=== PATIENT | female | born 1940 | race Caucasian/White ===

== ENCOUNTER 2016-05-27 12:45 | Observation (INO) | payer MEDICARE ==
[2016-05-27] VITALS (7 sets, daily range): BP systolic 146–221; BP diastolic 81–103; PULSE 72–93; RESP 16–20; O2SAT 95–100
[~2016-05-27] VITALS: Ht 170.2 cm; Wt 77.7 kg
[~2016-05-27 12:45] MED LIST: ACET325T51 PO; AMLO10TA3 PO; CARV12.52 PO; FURO40TA4 PO; HYDR-3939 PO; ISOS5TAB17 PO; POLY17PO6 PO
[2016-05-27 13:37] LABS: APPEARANCE,URINE HAZY (CLEAR,HAZY); COLOR,URINE STRAW (YELLOW)
[2016-05-27 13:38] LABS: OCCULT BLOOD,URINE NEGATIVE (NEGATIVE); UROBILINOGEN,URINE NORMAL (NORMAL)
--- NOTE | 2016-05-27 13:38 | ED.REPORT ---
HPI-General Illness Date of Service May 27, 2016 ED Provider: Miguel Llanes DO The patient is a 76 year old female w/ a hx of HTN who presents to the ED due to left flank pain for the past 4 days. She c/o associated SOB. A friend gave her 15 mg of morphine. She does not regularly take narcotics. She was diagnosed with renal stones and UTI at [facility] two days ago. The pain subsides when she puts a heating pad on her abdomen. The morphine significantly reduced her symptoms. She states her pain is not being controlled with the Vicodin they gave her. She is not currently experiencing any pain at the ED due to the pain medication. She denies diarrhea, vomiting, constipation, dysuria, incontinence, numbness, and weakness. Nursing Notes Stated Complaint: SHORTNESS OF BREATH POSSIBLE KIDNEY INFECTION Chief Complaint: General Complaint Nursing Notes Reviewed: Yes Allergies: Coded Allergies: codeine (Verified Allergy, Unknown, 05/27/16) Scheduled Amlodipine (Amlodipine) 10 Mg Tablet 10 MG PO DAILY Carvedilol (Carvedilol) 12.5 Mg Tablet 12.5 MG PO BID Furosemide (Furosemide) 40 Mg Tablet 40 MG PO DAILY Hydralazine (Hydralazine) 25 Mg Tablet 25 MG PO TID Isosorbide Dinitrate (Isordil Titradose) 5 Mg Tablet 10 MG PO TID Polyethylene Glycol 3350 (Miralax) 17 Gm Powd.pack 17 GM PO DAILY Scheduled PRN Acetaminophen (Acetaminophen) 325 Mg Tablet 325 MG PO Q4H PRN PRN For Fever General Time Seen by MD: 13:37 Chief Complaint Back pain Hx Obtained From: Patient Arrived By: Walk-in Sudden in Onset?: Yes Onset Occurred: 4 days ago Symptom Duration: Since onset Location: : Back Quality: Painful Radiation: : Abdomen Severity: Current: No pain currently Severity: Maximum: Moderate Recent Healthcare: Recent doctor visit Similar Sx Previous: Yes Past Medical History Past Medical History heart failure hiatal hernia small bowel obstruction Reports: Asthma, Hypertension Past Surgical History right foot surgery Reports: Hysterectomy Smoking History Former Smoker Social History Other Social History: Good social support, , Local resident Ambulatory Status Independent Review of Systems Full Review of Systems GI: Denies: Constipation, Diarrhea, Vomiting Female: Denies: Dysuria, Incontinence Musculoskeletal: Reports: Back pain Neurologic: Denies: Numbness, Weakness Complete sys rev & neg: except as marked. Physical Exam Vital Signs Vital Signs Date Time Temp Pulse Resp B/P Pulse Ox O2 Delivery O2 Flow Rate FiO2 05/27/16 12:58 37.4 77 16 189/96 100 Room Air Initial VS: Reviewed Head / Eyes: Atraumatic, Normocephalic, PERRL ENT: Mucous membranes moist, Conjunctiva normal Abdomen / GI: Soft, Non-tender Extremities: Vascular intact, No swelling Skin: Warm, Dry General/Constitutional: Awake, Alert Distress / Hydration: Positive: Distress mild Behavior: Positive: Agitated Back: No midline vertebral tend, No CVA tenderness no warmth Interpretation & Diagnostics Lab Results Interpretation Result Diagram: 05/27/16 1340 05/27/16 1340 Test 05/27/16 13:00 05/27/16 13:40 05/27/16 14:15 05/27/16 14:19 Urine Color Straw (YELLOW) Urine Appearance Hazy (CLEAR,HAZY) Urine pH 7.0 (5.0-8.0) Urine Specific [place] 1.005 (1.003-1.035) Urine Protein Negativemg/dL (NEG,TRACE) Urine Glucose (UA) Negativemg/dL (NEGATIVE) Urine Ketones Negativemg/dL (NEGATIVE) Urine Occult Blood Negative (NEGATIVE) Urine Nitrite Negative (NEGATIVE) Urine Bilirubin Negative (NEGATIVE) Urine Urobilinogen Normalmg/dL (NORMAL) Urine Leukocyte Esterase Small (NEGATIVE) Urine RBC 0-2/hpf (0-2) Urine WBC 0-5/hpf (0-5) Urine Epithelial Cells Occasional/hpf (NONE-MOD) Urine Crystals Oxalic acid crystals (NONE Urine Bacteria None/hpf (NONE-FEW) Urine Hyaline Casts None/lpf (NONE) Urine Granular Casts None seen (NONE SEEN) Urine Waxy Casts None seen (NONE SEEN) Urine Red Blood Cell Casts None seen (NONE SEEN) Urine White Blood Cell Casts None seen (NONE SEEN) Urine Mucus None seen (None Seen) Urine Trichomonas None seen (NONE SEEN) Urine Yeast None (NONE SEEN) Urinalysis Comment None Urine Culture Reflexed Indicated White Blood Count 7.2th/mm3 (3.8-10.1) Red Blood Count 4.69mil/mm3 (3.90-5.20) Hemoglobin 14.5g/dL (12.0-15.6) Hematocrit 42.2% (35.0-46.0) Mean Corpuscular Volume 90.0fL (81-100) Mean Corpuscular Hemoglobin 30.9pg (27.0-35.0) Mean Corpuscular Hemoglobin Concent 34.4% (32.0-37.0) Red Cell Distribution Width 12.4% (12.3-15.4) Platelet Count 264bil/L (150-400) Neutrophils (%) (Auto) 67.0% (40-74) Lymphocytes (%) (Auto) 20.3% (14-46) Monocytes (%) (Auto) 8.2% (4-12) Eosinophils (%) (Auto) 3.9% (0-5) Basophils (%) (Auto) 0.3% (0-3) Sodium Level 136mEq/L (134-144) Potassium Level 3.1mEq/L (3.5-5.2) Chloride Level 97mEq/L (97-108) Carbon Dioxide Level 18mmol/L (18-29) Blood Urea Nitrogen 21mg/dL (8-27) Creatinine 1.11mg/dL (0.57-1.00) Estimat Glomerular Filtration Rate 69mL/min (>59) Glucose Level 115mg/dL (60-99) Calcium Level 10.2mg/dL (8.5-10.1) Magnesium Level 1.7mg/dL (1.6-2.6) Total Bilirubin 0.6mg/dL (0.0-1.2) Aspartate Amino Transf (AST/SGOT) 19U/L (0-50) Alanine Aminotransferase (ALT/SGPT) 11U/L (0-32) Alkaline Phosphatase 89U/L (25-165) Total Protein 7.9g/dL (6.4-8.4) Albumin 4.3g/dL (3.4-5.0) Lipase 24U/L (13-60) Lactic Acid Level 3.2mmol/L (0.4-2.0) Hold Kapoor Top Tube Received (Received) Re-Eval/Medical Decision Med Decision/Clinical Course Unclear etiology of severe left-sided flank pain, patient has an elevated lactic, we will plan on a CT and further evaluation. Time of Eval: 15:02 Re-Evaluation/Progress Note: Pt care will be transferred to Dr. Boateng. Counseled Regarding: Diagnosis, Lab results, Need for follow-up, When/why to return to ED Discharge & Departure Shift Change Sign-Out Patient Care Transferred: Yes Discussed Complaint(s): Yes Primary Impression: Flank pain Disposition: Home Discharge Condition All VS Reviewed: Yes Condition: Stable Additional Instructions: Your imaging and labwork are reassuring. Your lactic acid is slightly elevated. There are no dangerous findings for your symptoms. Follow up with your primary care physician as needed. Return to the Emergency Department for any new or worsening symptoms. Referrals: Angela Holm DO (PCP) Care Transferred to: Dr. Boateng Care Transferred at: 15:01 Scribe Attestation Portion of this note were transcribed by Teresita Moss. I, Dr. Llanes, personally performed the history, physical exam, and medical decision-making: I reviewed and confirmed the accuracy for the information in the transcribed note. Signed by: irma Reyes, 05/27/16 1500 copies to: Angela Holm Timothy S DO May 27, 2016 13:38 Teresita Moss May 27, 2016 14:15
[2016-05-27 13:47] LABS: BASOPHILS % (AUTO) 0.3 % (0-3); EOSINOPHILS % (AUTO) 3.9 % (0-5); MONOCYTES % (AUTO) 8.2 % (4-12); Mean Corpuscular Hemoglobin 30.9 pg (27.0-35.0); Platelet Count 264 bil/L (150-400)
[2016-05-27 14:10] LABS: Magnesium 1.7 mg/dL (1.6-2.6)
--- NOTE | 2016-05-27 15:26 | DRSVH ---
PROCEDURE: CT ABDOMEN AND PELVIS WITH CONTRAST ([id number]) INDICATIONS: left flank pain TECHNIQUE: After the administration of intravenous contrast, 5 mm thick sections acquired from the diaphragm to the symphysis. 5 mm coronal and sagittal reformats were acquired. For radiation dose reduction, the following was used: automated exposure control, adjustment of mA and/or kV according to patient francie álvarez. COMPARISON: [facility], CT, KIDNEY/ URETER/BLADDER, 05/25/2016, 9:07. FINDINGS: Image quality: Excellent. ABDOMEN: Lung bases: Lung bases are clear. Heart size is normal. Solid organs: Liver is mildly enlarged with steatosis. The spleen is normal in size and enhancement. Hepatic cysts are unchanged. Gallbladder is unremarkable. Biliary system is non dilated. Pancreas enhances normally. No adrenal nodules. Kidneys demonstrate normal size and enhancement, without hyd ronephrosis. The previously identified bilateral nonobstructing renal calculi are again noted. The l argest on each side measures approximately 6-7 mm. Peritoneum and bowel: Bowel loops demonstrate normal wall thickness and caliber. No free fluid or a ir. Colonic diverticula are present without associated inflammatory change. Nodes and vessels: No retroperitoneal or mesenteric adenopathy by size criteria. Aorta and inferior vena cava are normal in size. Miscellaneous: No ventral hernias. PELVIS: Genitourinary: Bladder wall thickness is normal. Miscellaneous: No inguinal hernias or adenopathy. Bones: No suspicious bony lesions. No vertebral body compression fractures. IMPRESSION: 1. Protrusion appears to show low lower rib calculi. 2. Diverticulosis. Dictated by: Cherelle Barrera M.D. on 05/27/2016 at 15:19 Approved by: Cherelle Barrera M.D. on 05/27/2016 at 15:25
[2016-05-27] MEDS ORDERED: 0.9% Sodium Chloride 1,000 ML IV ONE ×2 (15:35→19:05)
[2016-05-27] MEDS ORDERED: Ondansetron 2 mg/mL 2 mL Inj ONE (21:38)
[2016-05-27] MEDS ORDERED: 0.9% Sodium Chloride 1,000 ML IV SCH (22:11)
[2016-05-27] MEDS ORDERED: Polyethylene Glycol (PEG) 17 Gm Powder PO PRN (22:15)
[2016-05-27] MEDS ORDERED: Alum-Mag Hydrox-Simeth 30 mL Suspension PO PRN (22:15)
[2016-05-27] MEDS ORDERED: TRIA15OI9 TOP (22:22)
[2016-05-27] MEDS: Heparin 5,000 Unit/mL Inj SUBQ SCH (23:50)
--- NOTE | 2016-05-28 00:27 | PCM.HPMED ---
Subjective Date of Service May 28, 2016 Primary Provider: Admitting Physician: Zeferino Jean Baptiste MD Primary Care Physician: Angela Holm DO Attending Physician: Zeferino Jean Baptiste MD Admit Status: From the Emergency Department Chief Complaint: Flank pain, patient has history of kidney stones History of Present Illness: This is a pleasant 76 Y/O F with hx of HTN, history of chronic kidney disease, history of nonobstructing nephrolithiasis, history of left-sided partial nephrectomy secondary to an obstructing stone at age 34, history of heart failure, and small bowel obstruction status post surgery 2 years ago for adhesions, who presented to the ED secondary to 4-6 days of left flank pain rated 9-10 out of 10 and described as a deep ache. Pain improves to 0/10 on morphine. She states she has had similar episodes 2 years ago when she had her bowel blockage. Associated symptoms include increased frequency of voiding, decreased urinary output,. Patient denies fever, chills, vomiting, abdominal pain, sick contacts, travel, dysuria, hematuria, constipation, hematochezia, diarrhea. Patient reports she has been receiving oral 15 mg morphine from her friend for the past 4-6 days. Of note patient is narcotic felicity. She was diagnosed with renal stones and UTI at [facility] two days ago. Things that make her pain improves are heat on her abdomen. Patient received IV morphine which caused her to become severely nauseous, and tachypneic during this interview. After receiving IV Zofran she began to feel more comfortable. She reports that she does much better on the oral morphine as it does not cause her to become nauseous. She has a history of allergy to pretty much every other narcotic which results in severe nausea. Of note patient had an elevated lactic acid of 3.2 which resolved after IV fluids. Patient's urinalysis was normal except for small leukocyte esterase. Patient was found to be hypokalemic at 3.1 Surgery was consulted on request of the ED, Dr. Crawford regarding this patient. Patient states prior to the onset of this pain she was normal. She reports that since her hiatal hernia surgery 20 years ago, she has been unable to vomit. Patient had CT abdomen and pelvis done in the ED which showed diverticulosis with no inflammation or signs of perforation. No hydronephrosis, no obstructing urinary tract stones. Patient received 2 L normal saline bolus in the ED. Patient received morphine 2 g IV in the ED. Patient was admitted to the hospital for observation and further workup. Vital signs: Temperature 37.4 pulse 77, blood pressure 189/96, map 127, RR 16, 1 % room air Repeat vitals: Pulse 93, blood pressure 146/81, 95% room air Hemogram: Within normal limits Chemistry panel: Sodium 136, potassium 3.1, chloride 97, carbon dioxide 18, BUN 21, creatinine 1.11, No baseline creatinine available for comparison, glucose 115 Lactic acid 3.2--> 1.5 Calcium 10.2 UA: Straw hazy colored urine, pH 7, specific gravity 1.005, small leukocyte esterase, Oxalic acid crystals, otherwise negative UA Urine culture pending Review of Systems: A comprehensive review of systems was conducted and was negative except as mentioned in history of present illness. Allergies Coded Allergies: codeine (Verified Allergy, Unknown, 05/27/16) hydrocodone (Verified Adverse Reaction, Intermediate, Nausea,Vomiting - TOLERATES MORPHINE, 05/27/16) TOLERATES MORPHINE hydromorphone (Verified Adverse Reaction, Intermediate, Nausea,Vomiting - TOLERATES MORPHINE, 05/27/16) TOLERATES MORPHINE oxycodone (Verified Adverse Reaction, Intermediate, Nausea,Vomiting- TOLERATES MORPHINE, 05/27/16) Home Medications Amlodipine (Amlodipine) 10 Mg Tablet 10 MG PO DAILY Carvedilol (Carvedilol) 12.5 Mg Tablet 12.5 MG PO BID Furosemide (Furosemide) 40 Mg Tablet 40 MG PO DAILY Hydralazine (Hydralazine) 25 Mg Tablet 25 MG PO TID Isosorbide Dinitrate (Isordil Titradose) 5 Mg Tablet 10 MG PO TID (Patient states she takes all of her blood pressure medications before bedtime regardless of dosing frequency) Polyethylene Glycol 3350 (Miralax) 17 Gm Powd.pack 17 GM PO DAILY PRN Acetaminophen (Acetaminophen) 325 Mg Tablet 325 MG PO Q4H PRN PRN For Fever PMH heart failure hiatal hernia small bowel obstruction Reports: Asthma, Hypertension Surgical History right foot surgery Reports: Hysterectomy Social History Hx Alcohol Use: No Smoking Status: Former Smoker Exam Vital Signs Vital Sign - Last Date Time Temp Pulse Resp B/P Pulse Ox O2 Delivery O2 Flow Rate FiO2 05/27/16 23:04 93 146/81 95 Room Air 05/27/16 17:23 20 05/27/16 12:58 37.4 Intake and Output 05/27/16 05/27/16 05/28/16 Cumulative From/Thru 15:00 23:00 07:00 05/27/16 15:39 - 05/27/16 23:59 Intake Total 2000 ml 2000 ml Balance 2000 ml 2000 ml Intake IV Total 2000 ml 2000 ml Exam General: Patient is alert and oriented 3 but in acute distress wheezing somewhat rapidly hunched over at the side of the bed stating that she is nauseous. HEENT: NC/AT, eyes, PERRLA, EOMI, neck, soft supple, no adenopathy, no JVD, no masses, no thyromegaly, throat mucous membranes pink and moist, no erythema, no exudates. Lungs: CTAB all weston, no wheezes, no rhonchi, no crackles, no adventitious lung sounds, no use of accessory muscles of respiration, good air movement, good respiratory effort. Heart: Regular rate and rhythm, no murmur, S1-S2 present, no rub, no click, no distant heart sounds, Abdomen: Soft, mildly tender in the suprapubic area, midline surgical scars spanning from the umbilicus inferiorly approximately 20 cm, abdomen is nondistended, bowel sounds hyperactive, no rebound, no guarding, Genitourinary: No CVA tenderness, mild suprapubic tenderness, no Calderon catheter, Extremities: Pulses equal and symmetric upper/lower extremity including radial and dorsalis pedis, no edema Neurologic: Grossly neurologically intact, speaks in full sentences, no focal neurological signs. Skin: Warm dry, no rashes present Osteopathic exam: Patient has chronic tissue texture changes T8 through T12 bilaterally, tender point at T10 on the right transverse process. Lab and Diagnostics Result Diagram: 05/27/16 1340 05/27/16 1340 X-Rays, CTs and MRIs Date of Service: 05/27/16 1437 PROCEDURE: CT ABDOMEN AND PELVIS WITH CONTRAST INDICATIONS: left flank pain TECHNIQUE: After the administration of intravenous contrast, 5 mm thick sections acquired from the diaphragm to the symphysis. 5 mm coronal and sagittal reformats were acquired. For radiation dose reduction, the following was used: automated exposure control, adjustment of mA and/or kV according to patient size. COMPARISON: [facility], CT, KIDNEY/ URETER/BLADDER, 05/25/2016, 9:07. FINDINGS: Image quality: Excellent. ABDOMEN: Lung bases: Lung bases are clear. Heart size is normal. Solid organs: Liver is mildly enlarged with steatosis. The spleen is normal in size and enhancement. Hepatic cysts are unchanged. Gallbladder is unremarkable. Biliary system is non dilated. Pancreas enhances normally. No adrenal nodules. Kidneys demonstrate normal size and enhancement, without hydronephrosis. The previously identified bilateral nonobstructing renal calculi are again noted. The largest on each side measures approximately 6-7 mm. Peritoneum and bowel: Bowel loops demonstrate normal wall thickness and caliber. No free fluid or air. Colonic diverticula are present without associated inflammatory change. Nodes and vessels: No retroperitoneal or mesenteric adenopathy by size criteria. Aorta and inferior vena cava are normal in size. Miscellaneous: No ventral hernias. PELVIS: Genitourinary: Bladder wall thickness is normal. Miscellaneous: No inguinal hernias or adenopathy. Bones: No suspicious bony lesions. No vertebral body compression fractures. IMPRESSION: 1. Protrusion appears to show low lower rib calculi. 2. Diverticulosis. Dictated by: Cherelle Barrera M.D. on 05/27/2016 at 15:19 Approved by: Cherelle Barrera M.D. on 05/27/2016 at 15:25 Assessment & Plan This is a pleasant 76-year-old female with history of hypertension,recent diagnosis at [facility] of bilateral nonobstructing kidney stones, and recent diagnosis of UTI 2 days ago, after acute onset of left sided back pain rated 10 out of 10. He was found to have elevated lactate which resolved on IV fluids, as well as hypokalemia. Surgery was consulted and patient was admitted for observation and further workup. Of note patient is acutely sensitive to opiate medications which make her nauseous. # Flank pain, present on admission, active - Onset about 1 week ago. He has been taking a friend's 15 mg morphine for pain control. Patient was previously narcotic 90 - Flank pain out of perforation to physical exam. - Admitted for observation and pain control, as well as further workup. - CT abdomen and pelvis showing bilateral calculi however without signs of urinary obstruction or hydronephrosis - Patient reports increased urinary frequency and decreased volume with each void. - urology consult in the morning could be considered if patient fails to improve and has worsening symptoms overnight. - Patient did not tolerate IV morphine, switch patient to by mouth morphine 2-4 mg oral solution every 4 hours - IV fluids normal saline # Bilateral renal calculi nonobstructing as seen on CT, present on admission, - No signs of hydronephrosis # Diverticulosis as seen on CT, present remission - No signs of inflammation on CT - Surgery Dr. Quintero has been consulted, thank you for your recommendation # Patient has history of small bowel obstruction secondary to adhesions 2 years ago status post surgical lysis. - Patient states her current pain is very similar and located in the same region as her pain was during the small bowel obstruction. - Surgery is on board as stated previously # Hypokalemia, present on admission, active - Potassium 3.1 - We will replace potassium - We will follow-up with a.m. labs # Heart failure, presumed stable # Asthma, presumed stable # Hypertension - Continue medication amlodipine 10 mg daily - Continue carvedilol 12.5 mg twice a day - Continue furosemide 40 mg daily - Continue hydralazine 25 mg 3 times a day - Continue medication isosorbide dinitrate 10 mg by mouth 3 times a day - She states that she takes all of her blood pressure medications at night regardless of the dosing frequency. Patient states that she takes her blood pressure medications when her blood pressure runs high. Patient started to "a research paper regarding how taking it in this fashion was better during the interview. Disposition: Admitted to in patient for observation, secondary to severity of presenting symptoms, treatment plan, complexity of clinical work up, and risk of adverse events. GI prophylaxis: Not indicated CODE STATUS: Full code PCP: Angela Holm DO DVT PE prophylaxis: SubQ heparin Q8H Contact: Pain Evaluation: Other (pain controlled on oral morphine) VTE Prophylaxis: Sub-Q Heparin (Unfractionated) Resuscitation Status: CPR: Attempt Resuscitation Attending Statement The patient was seen and examined together with Dr. Bustos on 05/27 and I agree with the history, exam and plan as outlined in the note above. copies to: Angela Holm Benjamin DO May 28, 2016 00:27 Zeferino Jean Baptiste MD May 28, 2016 02:22
[2016-05-28] MEDS: Ondansetron 2 mg/mL 2 mL Inj IVPUSH PRN ×3 (00:49→07:32)
[2016-05-28] MEDS ORDERED: Morphine 2 mg/mL 5 mL Oral Solution PO PRN (01:35)
--- NOTE | 2016-05-28 01:46 | CONS ---
[address] [address] CONSULTATION REPORT PATIENT: DARRICK MCMILLAN : 1940 MR#: [id number] ADMIT: 05/27/2016 JOB ID: [id number] DATE OF SERVICE: 05/27/2016 CHIEF COMPLAINT: Left flank pain. HISTORY OF PRESENT ILLNESS: I am asked to evaluate the patient at the request of Dr. Gary Boateng in the emergency department. This patient is 76 years old and was seen in the emergency department at [facility] three days ago with the same complaint, diagnosed with a urinary tract infection, and placed on antibiotics. She then returns for evaluation today with ongoing and increasing left flank pain which radiates like a band around her left side around to her left mid abdomen. The pain is alleviated by putting a heating pad on her flank. She has been taking morphine by mouth, which she received from a friend, which has been helping. She has not had any vomiting, but says that some of the medication they gave her has caused some nausea. Otherwise, she has not complained of nausea. She is slightly constipated, last bowel movement was two days ago, but she has been passing gas, and has not had any blood in her stool. She denies diarrhea. Oral intake was approximately 1 L of water today. Because of the severity of her pain, writhing in pain, I was asked to evaluate for the possibility of mesenteric ischemia. PAST MEDICAL HISTORY: Hypertension, on four medications, asthma, chronic kidney disease, nephrolithiasis. PAST SURGICAL HISTORY: Right foot surgery, hysterectomy, left partial nephrectomy, exploratory laparotomy with lysis of adhesions for small bowel obstruction. MEDICATIONS: Include amlodipine, carvedilol, furosemide, hydralazine, isosorbide and polyethylene glycol. ALLERGIES: CODEINE. SOCIAL HISTORY: She is a nonsmoker. She denies alcohol and illicit drug use. FAMILY HISTORY: Noncontributory. REVIEW OF SYSTEMS: A 10-point review of systems is negative except as described in history of present illness. PHYSICAL EXAMINATION: Temperature 37.4, pulse 80, respirations 20, blood pressure 192/93, saturation 98% on room air. General: She is uncomfortable appearing, squirming on the bed. HEENT: Sclerae are anicteric. Mucous membranes are moist. Neck: No lymphadenopathy. No jugular venous distention. Chest is clear. Heart: Regular rate and rhythm. No murmurs. Abdomen: Soft, nontender, nondistended. She has a vertical midline laparotomy scar and a transverse scar on the left mid abdomen which wraps all the way around to her left back. There is no evidence of hernia. There are no palpable masses. There is no guarding or rebound tenderness. Extremities: No edema. Neuro: No deficits. Psychiatric: Affect is appropriate. LABORATORIES: White blood cell count 7.2, hematocrit 42.2, platelets 264. Differential completely normal with 67% polys, 20% lymphocytes, no bands. Chemistry: Bicarb is 18, creatinine 1.11, glucose 115, lactate 3.2, calcium 10.2, albumin 4.3. Urinalysis shows a small amount of leukocyte esterase and oxalic acid crystals. Culture is indicated. IMAGING: CT of the abdomen and pelvis with contrast shows normal caliber and thickness of small bowel loops. There are some colonic diverticula, but no colon thickening. There is no free abdominal fluid, no free air. There are bilateral nonobstructing renal calculi. Both kidneys are normal in size and enhancement, and there is no hydronephrosis. There is moderate atherosclerotic plaque, but celiac and SMA arteries are widely patent. ASSESSMENT AND PLAN: A 76-year-old woman with left flank pain, but no evidence of acute or chronic mesenteric ischemia. The most convincing aspect going against evidence of mesenteric ischemia is the fact that she does not have evidence of bowel obstruction, no small bowel dilation, no small bowel thickening, no free fluid. Both her celiac and SMA arteries are widely patent even though she does have a moderate amount of atherosclerotic plaque. I personally wonder about the possibility of a left ureteral stone, possibly missed because of the plaque in her left iliac artery in the area where the ureter crosses over. Nonetheless, General Surgery will continue to follow her with serial abdominal exams. Recommend admission to the hospitalist service. If she develops tachycardia, hypotension, increasing lactic acidosis, new bandemia, or if plain abdominal film showed development of free air, she would warrant abdominal exploration. For the time being, I am not recommending surgical intervention. We will continue to follow her closely.
--- NOTE | 2016-05-28 01:49 | NUR ---
Admit to [facility] received phone report from ED RN at 2250, pt arrived to floor via wheelchair accompanied by nuclear engineering technician and family, pt able to ambulate to bed, pt a/o able to makes needs known, IV on LFA 20G on sl, 2 RN skin check done with Anju Trejo RN, oriented pt to room and call light,@0140 Dr. Bowens at bedside ordered bladder scan, scanned bladder showing only 231 mls, bed in low position, call light in reach,continue to monitor
[2016-05-28] MEDS ORDERED: KCl 40 mEq/D5W 500 mL 40 MEQ in IV Premix 1 EACH IV ONE (02:20)
[2016-05-28 04:06] VITALS: BP 164/78; PULSE 79; RESP 17; O2SAT 98
[2016-05-28] MEDS ORDERED: ProchlorPERazine 5 mg/mL 2 mL Inj IV ONE (04:15)
[2016-05-28 06:37] LABS: BASOPHILS % (AUTO) 0.1 % (0-3); EOSINOPHILS % (AUTO) 1.6 % (0-5); MONOCYTES % (AUTO) 8.7 % (4-12); Mean Corpuscular Hemoglobin 31.1 pg (27.0-35.0); Mean Corpuscular Volume 91.4 fL (81-100); NEUTROPHILS % (AUTO) 68.9 % (40-74); Platelet Count 234 bil/L (150-400)
[2016-05-28 07:43] VITALS: BP 168/86; PULSE 67; RESP 18; O2SAT 94
--- NOTE | 2016-05-28 07:43 | PROG NOTE ---
[address] [address] PROGRESS NOTE PATIENT: DARRICK MCMILLAN : 1940 MR#: [id number] ADMIT: 05/27/2016 JOB ID: [id number] DATE: 05/28/2016 SUBJECTIVE: The patient is seen in followup. She feels better today than yesterday. She still does have some nausea. She is currently not complaining of abdominal or flank pain. OBJECTIVE: Temperature 36.6, pulse 79, blood pressure 164/78, saturation 98% on room air. In general, she is resting in bed in no acute distress. Chest is clear. Heart regular rate and rhythm, no murmurs. Abdomen is soft, nontender, nondistended. Bowel tones are present and sound normal. LABORATORIES: White blood cell count 6.8, hematocrit 36.2, platelets 234, differential includes 68% neutrophils, 20% lymphocytes, no bands. Creatinine 0.80. Glucose 147. Repeat lactate last night was 1.5. ASSESSMENT AND PLAN: A 76-year-old woman with left flank pain. There is no evidence of mesenteric ischemia and no evidence of bowel obstruction. I do not think she has a surgical issue, and General Surgery will sign off. Please reconsult if new questions or issues arise.
[2016-05-28] MEDS ORDERED: Polyethylene Glycol (PEG) 17 Gm Powder PO SCH (08:30)
[2016-05-28] MEDS: Heparin 5,000 Unit/mL Inj SUBQ SCH (09:04)
--- NOTE | 2016-05-28 11:21 | NUR ---
Case Management: ARCHER and Medicare part D info given and explained to patient at bedside at 11:15 am. Pt's present. No questions at this time. Signed original ARCHER placed on hard chart, copy given to pt. CHETAN Ochoa RN
[2016-05-28] MEDS ORDERED: Morphine ER 15 mg (MS Contin) Tablet PO SCH (11:50)
[2016-05-28] MEDS ORDERED: MECL-114 PO (11:54)
[2016-05-28] MEDS ORDERED: ZOF8 PO (11:54)
[2016-05-28] MEDS ORDERED: MORP-32 PO (11:54)
--- NOTE | 2016-05-28 12:02 | PCM.DIMED ---
Discharge Instructions Date of Service May 28, 2016 Dates of Hospitalization May 27, 2016 at 22:41 Discharge Diagnosis Discharge Diagnosis Flank pain secondary to bilateral renal calculi nonobstructing Diverticulosis Hypokalemia (resolved) Medication Instructions He has been given meclizine to take for the dizziness please take as directed. You have also been given pain medication morphine to take as needed for pain please follow the directions. Diet Renal Diet Activity No restrictions (gradually return to normal daily activities) Call your provider Fever or Chills, Shortness of breath, Bleeding, Vomitting Patient Instructions Please follow-up with both her primary care physician within one week and also with a urologist for further diagnosis of this particular pain. Follow-up plan Please follow-up with urology in regards to the kidney stone. Follow-up Provider: Angela Holm DO Follow-up with PCP in: 1 week (if an appointment has not been made please call to schedule an appointment) Danika Devi DO May 28, 2016 12:02
--- NOTE | 2016-05-28 12:08 | PCM.DC.MED ---
Discharge Summary Date of Service May 28, 2016 Dates of Hospitalization Date of Hospital Admission May 27, 2016 at 22:41 Date of Discharge: May 28, 2016 Providers: Admitting Physician: Zeferino Jean Baptiste MD Primary Care Physician: Angela Holm DO Attending Physician: Zeferino Jean Baptiste MD Diagnosis at Time of Discharge Diagnosis at Time of Discharge Flank pain secondary to bilateral renal calculi nonobstructing Diverticulosis Hypokalemia (resolved) Procedures XRay, CTs & MRIs Date of Service: 05/27/16 1437 PROCEDURE: CT ABDOMEN AND PELVIS WITH CONTRAST INDICATIONS: left flank pain TECHNIQUE: After the administration of intravenous contrast, 5 mm thick sections acquired from the diaphragm to the symphysis. 5 mm coronal and sagittal reformats were acquired. For radiation dose reduction, the following was used: automated exposure control, adjustment of mA and/or kV according to patient size. COMPARISON: [facility], CT, KIDNEY/ URETER/BLADDER, 05/25/2016, 9:07. FINDINGS: Image quality: Excellent. ABDOMEN: Lung bases: Lung bases are clear. Heart size is normal. Solid organs: Liver is mildly enlarged with steatosis. The spleen is normal in size and enhancement. Hepatic cysts are unchanged. Gallbladder is unremarkable. Biliary system is non dilated. Pancreas enhances normally. No adrenal nodules. Kidneys demonstrate normal size and enhancement, without hydronephrosis. The previously identified bilateral nonobstructing renal calculi are again noted. The largest on each side measures approximately 6-7 mm. Peritoneum and bowel: Bowel loops demonstrate normal wall thickness and caliber. No free fluid or air. Colonic diverticula are present without associated inflammatory change. Nodes and vessels: No retroperitoneal or mesenteric adenopathy by size criteria. Aorta and inferior vena cava are normal in size. Miscellaneous: No ventral hernias. PELVIS: Genitourinary: Bladder wall thickness is normal. Miscellaneous: No inguinal hernias or adenopathy. Bones: No suspicious bony lesions. No vertebral body compression fractures. IMPRESSION: 1. Protrusion appears to show low lower rib calculi. 2. Diverticulosis. Dictated by: Cherelle Barrera M.D. on 05/27/2016 at 15:19 Approved by: Cherelle Barrera M.D. on 05/27/2016 at 15:25 Brief History This is a pleasant 76 Y/O F with hx of HTN, history of chronic kidney disease, history of nonobstructing nephrolithiasis, history of left-sided partial nephrectomy secondary to an obstructing stone at age 34, history of heart failure, and small bowel obstruction status post surgery 2 years ago for adhesions, who presented to the ED secondary to 4-6 days of left flank pain rated 9-10 out of 10 and described as a deep ache. Pain improves to 0/10 on morphine. She states she has had similar episodes 2 years ago when she had her bowel blockage. Associated symptoms include increased frequency of voiding, decreased urinary output,. Patient denies fever, chills, vomiting, abdominal pain, sick contacts, travel, dysuria, hematuria, constipation, hematochezia, diarrhea. Patient reports she has been receiving oral 15 mg morphine from her friend for the past 4-6 days. Of note patient is narcotic felicity. She was diagnosed with renal stones and UTI at [facility] two days ago. Things that make her pain improves are heat on her abdomen. Patient received IV morphine which caused her to become severely nauseous, and tachypneic during this interview. After receiving IV Zofran she began to feel more comfortable. She reports that she does much better on the oral morphine as it does not cause her to become nauseous. She has a history of allergy to pretty much every other narcotic which results in severe nausea. Of note patient had an elevated lactic acid of 3.2 which resolved after IV fluids. Patient's urinalysis was normal except for small leukocyte esterase. Patient was found to be hypokalemic at 3.1 Surgery was consulted on request of the ED, Dr. Crawford regarding this patient. Patient states prior to the onset of this pain she was normal. She reports that since her hiatal hernia surgery 20 years ago, she has been unable to vomit. Patient had CT abdomen and pelvis done in the ED which showed diverticulosis with no inflammation or signs of perforation. No hydronephrosis, no obstructing urinary tract stones. Patient received 2 L normal saline bolus in the ED. Patient received morphine 2 g IV in the ED. Patient was admitted to the hospital for observation and further workup. Vital signs: Temperature 37.4 pulse 77, blood pressure 189/96, map 127, RR 16, 1 % room air Repeat vitals: Pulse 93, blood pressure 146/81, 95% room air Hemogram: Within normal limits Chemistry panel: Sodium 136, potassium 3.1, chloride 97, carbon dioxide 18, BUN 21, creatinine 1.11, No baseline creatinine available for comparison, glucose 115 Lactic acid 3.2--> 1.5 Calcium 10.2 UA: Straw hazy colored urine, pH 7, specific gravity 1.005, small leukocyte esterase, Oxalic acid crystals, otherwise negative UA Urine culture pending Hospital Course This is a pleasant 76-year-old female with history of hypertension,recent diagnosis at [facility] of bilateral nonobstructing kidney stones, and recent diagnosis of UTI 2 days ago, after acute onset of left sided back pain rated 10 out of 10. He was found to have elevated lactate which resolved on IV fluids, as well as hypokalemia. Surgery was consulted and patient was admitted for observation and further workup. Of note patient is acutely sensitive to opiate medications which make her nauseous. The patient was diagnosed with left flank pain secondary to renal calculi. The renal calculi was nonobstructing according to CT scan. The patient also was diagnosed with diverticulitis and as there were no signs of inflammation general surgery stated that the patient is currently stable at this time and there is no surgery needed. The patient is currently not complaining of any abdominal pain only left flank pain. The patient has been instructed to follow- up with both her primary care physician as well as urology for further workup. The patient is currently eating and drinking and has not had any vomiting with this. The patient is extremely anxious to be discharged home today. Patient is being discharged home in stable condition with the understanding that she will follow-up with both her PCP and urology for further workup. # Flank pain, present on admission, active - Onset about 1 week ago. He has been taking a friend's 15 mg morphine for pain control. Patient was previously narcotic 90 - Flank pain out of perforation to physical exam. - Admitted for observation and pain control, as well as further workup. - CT abdomen and pelvis showing bilateral calculi however without signs of urinary obstruction or hydronephrosis - Patient reports increased urinary frequency and decreased volume with each void. - urology consult in the morning could be considered if patient fails to improve and has worsening symptoms overnight. - Patient did not tolerate IV morphine, switch patient to by mouth morphine 2-4 mg oral solution every 4 hours - IV fluids normal saline # Bilateral renal calculi Nonobstructing As seen on CT, present on admission, - No signs of hydronephrosis # Diverticulosis as seen on CT, present remission - No signs of inflammation on CT - Surgery Dr. Quintero has been consulted, thank you for your recommendation # Patient has history of small bowel obstruction secondary to adhesions 2 years ago status post surgical lysis. - Patient states her current pain is very similar and located in the same region as her pain was during the small bowel obstruction. - Surgery is on board as stated previously # Hypokalemia, present on admission, active - Potassium 3.1 - We will replace potassium - We will follow-up with a.m. labs # Heart failure, presumed stable # Asthma, presumed stable # Hypertension - Continue medication amlodipine 10 mg daily - Continue carvedilol 12.5 mg twice a day - Continue furosemide 40 mg daily - Continue hydralazine 25 mg 3 times a day - Continue medication isosorbide dinitrate 10 mg by mouth 3 times a day - She states that she takes all of her blood pressure medications at night regardless of the dosing frequency. Patient states that she takes her blood pressure medications when her blood pressure runs high. Patient started to "a research paper regarding how taking it in this fashion was better during the interview. Exam Vital Signs (Last) Date Time Temp Pulse Resp B/P Pulse Ox O2 Delivery O2 Flow Rate FiO2 05/28/16 07:43 36.9 67 18 168/86 94 Room Air Exam Physical Exam: GEN: Patient was awake, alert, responding appropriately to questions HEENT: Pupils equal round and reactive to light, extraocular eye muscles intact , Neck soft supple, trachea midline, nomocephalic/atraumatic CV: +S1/S2, regular rate and rhythm, no murmurs auscultated Respiratory: CTAB, no wheezes, rales, rhonchi GI: +bowel sounds x4, soft, compressible, nontender to palpation : No CVA tenderness EXT: no clubbing, cyanosis, edema Neuro: Cranial nerves II-XII grossly intact Psych: mood and affect were appropriate Test 05/27/16 13:00 05/27/16 13:40 05/27/16 14:19 05/27/16 19:45 Urine Color Straw (YELLOW) Urine Appearance Hazy (CLEAR,HAZY) Urine pH 7.0 (5.0-8.0) Urine Specific [place] 1.005 (1.003-1.035) Urine Protein Negativemg/dL (NEG,TRACE) Urine Glucose (UA) Negativemg/dL (NEGATIVE) Urine Ketones Negativemg/dL (NEGATIVE) Urine Occult Blood Negative (NEGATIVE) Urine Nitrite Negative (NEGATIVE) Urine Bilirubin Negative (NEGATIVE) Urine Urobilinogen Normalmg/dL (NORMAL) Urine Leukocyte Esterase Small (NEGATIVE) Urine RBC 0-2/hpf (0-2) Urine WBC 0-5/hpf (0-5) Urine Epithelial Cells Occasional/hpf (NONE-MOD) Urine Crystals Oxalic acid crystals (NONE Urine Bacteria None/hpf (NONE-FEW) Urine Hyaline Casts None/lpf (NONE) Urine Granular Casts None seen (NONE SEEN) Urine Waxy Casts None seen (NONE SEEN) Urine Red Blood Cell Casts None seen (NONE SEEN) Urine White Blood Cell Casts None seen (NONE SEEN) Urine Mucus None seen (None Seen) Urine Trichomonas None seen (NONE SEEN) Urine Yeast None (NONE SEEN) Urinalysis Comment None Urine Culture Reflexed Indicated Magnesium Level 1.7mg/dL (1.6-2.6) Lipase 24U/L (13-60) Hold Kapoor Top Tube Received (Received) Lactic Acid Level 1.5mmol/L (0.4-2.0) Test 05/28/16 06:00 White Blood Count 6.8th/mm3 (3.8-10.1) Red Blood Count 3.96mil/mm3 (3.90-5.20) Hemoglobin 12.3g/dL (12.0-15.6) Hematocrit 36.2% (35.0-46.0) Mean Corpuscular Volume 91.4fL (81-100) Mean Corpuscular Hemoglobin 31.1pg (27.0-35.0) Mean Corpuscular Hemoglobin Concent 34.0% (32.0-37.0) Red Cell Distribution Width 12.4% (12.3-15.4) Platelet Count 234bil/L (150-400) Neutrophils (%) (Auto) 68.9% (40-74) Lymphocytes (%) (Auto) 20.6% (14-46) Monocytes (%) (Auto) 8.7% (4-12) Eosinophils (%) (Auto) 1.6% (0-5) Basophils (%) (Auto) 0.1% (0-3) Sodium Level 139mEq/L (134-144) Potassium Level 3.6mEq/L (3.5-5.2) Chloride Level 105mEq/L (97-108) Carbon Dioxide Level 21mmol/L (18-29) Blood Urea Nitrogen 13mg/dL (8-27) Creatinine 0.80mg/dL (0.57-1.00) Estimat Glomerular Filtration Rate 100mL/min (>59) Glucose Level 147mg/dL (60-99) Calcium Level 9.0mg/dL (8.5-10.1) Total Bilirubin 0.4mg/dL (0.0-1.2) Aspartate Amino Transf (AST/SGOT) 17U/L (0-50) Alanine Aminotransferase (ALT/SGPT) 9U/L (0-32) Alkaline Phosphatase 73U/L (25-165) Total Protein 6.4g/dL (6.4-8.4) Albumin 3.8g/dL (3.4-5.0) Discharge Medications Discharge Medications Amlodipine (Amlodipine) 10 Mg Tablet 10 MG PO HS (Reported) Carvedilol (Carvedilol) 12.5 Mg Tablet 12.5 MG PO BID (Reported) Hydralazine (Hydralazine) 25 Mg Tablet 25 MG PO TID (Reported) Isosorbide Dinitrate (Isordil Titradose) 5 Mg Tablet 20 MG PO TID (Reported) Meclizine (Bonine) 25 Mg Tab.chew 25 MG PO TID Prescribed by: VANESSA CASTILLO DO Morphine Sulfate ER (Morphine Sulfate ER) 15 Mg Tablet 15 MG PO BID Prescribed by: VANESSA CASTILLO DO Polyethylene Glycol 3350 (Miralax) 17 Gm Powd.pack 17 GM PO DAILY (Reported) Triamcinolone Acetonide (Triamcinolone Acetonide Ointment) 15 Gm Oint...g. 1 GM TOP HS (Reported) As needed Acetaminophen (Acetaminophen) 325 Mg Tablet 325 MG PO Q4H PRN PRN For Fever ( Reported) Ondansetron (Zofran) 8 Mg Tablet 8 MG PO Q4H PRN PRN For Nausea Prescribed by: VANESSA CASTILLO DO Additional med instructions He has been given meclizine to take for the dizziness please take as directed. You have also been given pain medication morphine to take as needed for pain please follow the directions. Followup Plan Follow-up plan Please follow-up with urology in regards to the kidney stone. Discharge Diet: Renal Diet Discharge Activity: No restrictions (gradually return to normal daily activities) Patient Instructions Please follow-up with both her primary care physician within one week and also with a urologist for further diagnosis of this particular pain. Follow-up Provider: Angela Homl DO Follow-up with PCP in: 1 week (if an appointment has not been made please call to schedule an appointment) Time spent Greater than 35 minutes copies to: Angela Holm Precious L DO May 28, 2016 12:08
[2016-05-28 12:25] VITALS: BP 135/79; PULSE 65; RESP 16; O2SAT 97
--- NOTE | 2016-05-28 12:35 | NUR ---
Social Work- Initial assessment: Data & Assessment: See Initial Assessment. EMR reviewed. Patient is a 76 y/o female that admitted for abdominal pain per H&P. Internet Marketing Assistant met with patient and patient's /NOK, Stephen Aly [phone], to discuss discharge planning, SW role reviewed and initial assessment complete. Patient alert and orient x3. Patient has a re-admit score of 3-high risk. Patient's insurance is [employer] and patient's PCP is Dr. Angela Holm. Patient does not have any VA or LTC benefits. Patient lives in a two story home with where she is independent with ADL's. Patient does drive. Patient's home has three steps to enter and twelve steps on the inside. Patient has no DME and no SNF or HH history. Patient does not have any discharge needs at the current time. Patient is likely to discharge home with spouse. SW provided contact in fromation on patient's white board in her reoom. SW will continue to follow. Plan: Patient is likely to discharge home with spouse via POV and no needs. SW will continue to follow and assist patient with discharge planning needs. Jorge L Ann LMSW, DENISSE Addendum: 05/28/16 at 1248 by JORGE L ANN Amended: Links added.
--- NOTE | 2016-05-28 14:28 | NUR ---
Discharge Patient discharged home with family. MD spoke with family prior to patients discharge. Discharge instructions discussed with patient care notes given for acute stomach pain, diverticulosis at patients request as well as renal diet. Patients pain was 0/10 after taking Tylenol and at discharge she remained pain free. Patient also tolerated lunch. Upcoming appointments discussed with patient and these were noted on the discharge instructions. Patients home meds from pharmacy were sent home with patient in the sealed bag they were placed in upon admit.
[2016-06-04] MEDS ORDERED: HYDR-4003 PO (19:05)
== END 2016-05-28 14:20 | disposition home or self-care (01) ==
LOC: SED 12:45 → MOC 22:41
PROVIDERS: ADMIT Hospitalist; ATTEND Hospitalist
DX: N20.0 Calculus of kidney (principal); K57.30 Diverticulosis of large intestine without perforation or abscess without bleeding; E87.6 Hypokalemia; I13.0 Hypertensive heart and chronic kidney disease with heart failure and stage 1 through stage 4 chronic kidney disease, or unspecified chronic kidney disease; N18.9 Chronic kidney disease, unspecified; I50.9 Heart failure, unspecified; J45.909 Unspecified asthma, uncomplicated; K44.9 Diaphragmatic hernia without obstruction or gangrene; Z87.891 Personal history of nicotine dependence
CPT/HCPCS: 36415; 74177; 80053; 81000; 83605; 83690; 83735; 85025; 87086; 87088; 93005; 96361; 96374; 96375; 96376; 99285; G0378; J0780; J1644; J2270; J2405; J3480; J7030; Q9967

== ENCOUNTER 2016-06-05 12:10 | Day surgery (SDC) | payer MEDICARE ==
[~2016-06-05] VITALS: Ht 170.2 cm; Wt 78.6 kg
[2016-06-05] VITALS (9 sets, daily range): BP systolic 158–176; BP diastolic 73–93; PULSE 53–64; RESP 9–22; O2SAT 90–98
[~2016-06-05 12:10] MED LIST changes: -FURO40TA4 PO; +HYDR-4003 PO; +MECL-114 PO; -POLY17PO6 PO
[2016-06-05] MEDS ORDERED: Ondansetron 2 mg/mL 2 mL Inj ONE (12:11)
[2016-06-05] MEDS ORDERED: Propofol 10,000 mCg/mL 20 mL Inj ONE (12:11)
[2016-06-05] MEDS ORDERED: Dexamethasone 4 mg/mL Inj ONE (12:11)
[2016-06-05] MEDS ORDERED: fentaNYL-PF 50 mCg/mL 2 mL Inj ONE ×2 (12:11→12:35)
[2016-06-05] MEDS ORDERED: CeFAZolin Inj 2 gm / 50mL D5W IV ONE (13:52)
--- NOTE | 2016-06-05 14:06 | PCM.HPANE ---
Patient Data Surgeon Admitting Provider: Attending Provider:Rubia Lovell MD Primary Care Physician:Angela Holm DO Other Provider:Neymar Pavon Anesthesia Reason for Visit Left Kidney Stone Ht/WT & BMI Height (Feet): 5 Height (Inches): 7 Weight (Kilograms): 78.6 Body Mass Index 27.00 Allergies Coded Allergies: codeine (Verified Allergy, Unknown, unknown, 06/05/16) hydrocodone (Verified Adverse Reaction, Intermediate, Nausea,Vomiting - DALJIT. MORPHINE--TAKING VICODIN W/O PROBLEMS, 06/05/16) TOLERATES MORPHINE hydromorphone (Verified Adverse Reaction, Intermediate, Nausea,Vomiting - TOLERATES MORPHINE, 06/05/16) TOLERATES MORPHINE oxycodone (Verified Adverse Reaction, Intermediate, Nausea,Vomiting- TOLERATES MORPHINE, 06/05/16) Past Anesthesia History Anesthesia History: Denies:: Abnormal Airway, Anesthesia Reactions, Difficult Intubation, Fam Anesthesia Reaction, Fam Malignant Hypertherm, Malignant Hyperthermia Diabetes History Hx Diabetes?: No MRSA MRSA: No Medications Hypertension Medication: Yes (lasix,amlodipine,hydralazine) Home Meds Incl Beta Shanti: Yes Date Beta Shanti Taken: Jun 05, 2016 Time Beta Shanti Taken: 1300 Active Scripts Meclizine (Bonine)25 Mg Tab.chew25 Mg PO TID DIZZINESS #20 TABLET Prov:Danika Devi DO 05/28/16 Reported Medications Hydrocodone-Acetaminophen 5-325 mg 1 Each Tablet1 Tablet PO Q4H PRN For Pain Ref 0 06/04/16 Acetaminophen 325 Mg Czkwid012 Mg PO Q4H PRN For Fever Ref 0 03/15/15 Isosorbide Dinitrate (Isordil Titradose)5 Mg Bmlvvp34 Mg PO TID 03/15/15 Hydralazine 25 Mg Lczgri92 Mg PO TID Ref 0 03/15/15 Carvedilol 12.5 Mg Fincjn05.5 Mg PO BID Ref 0 03/15/15 Amlodipine 10 Mg Tdnfgz71 Mg PO HS Ref 0 03/15/15 Discontinued Reported Medications Triamcinolone Acetonide (Triamcinolone Acetonide Ointment)15 Gm Oint...g.1 Gm TOP HS #15 GM Ref 0 05/27/16 Polyethylene Glycol 3350 (Miralax)17 Gm Powd.pack17 Gm PO DAILY 03/15/15 Discontinued Scripts Morphine Sulfate ER 15 Mg Bkrxic22 Mg PO BID #10 Prov:Danika Devi DO 05/28/16 Ondansetron (Zofran)8 Mg Tablet8 Mg PO Q4H PRN For Nausea #20 TABLET Prov:Danika Devi DO 05/28/16 History History of ENT Problems?: Yes HEENT History: Positive for:: Cataracts (s/p extraction) Denies:: Abnormal Airway Difficult Intubation Dysphagia Hearing Problem Denture Type: None Teeth Condition: Within Normal Limits Hx of Heart Problems?: Yes Cardiovascular History: Positive for:: 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) Congestive Heart Failure Hypertension Valvular Heart Disease (mod severe mr) Denies:: AICD Atrial Fibrillation Chest Pain Heart Murmur (echo 01/2015 ef 60-65%) Pacemaker Other Cardiac History: HOSP ADMISSION 05/27/2016 FOR FLANK PAIN, ELEV K+ Hx of Respiratory Problem?: Yes Respiratory History: Positive for:: Asthma Denies:: Tuberculosis Use of C-PAP Machine Hx Neurologic Problems?: Yes Neurological History: Positive for:: Dizziness (DIZZINESS) Denies:: CVA Dementia Hx of GI Problems?: Yes Other GI Pertinent History: S/P LYSIS OF ADHESIONS FOR SBO Hx of Problems?: Yes Genitourinary History: Positive for:: Kidney Stones (LT STONE=CURRENT PROBLEM S/P LT PARTIAL NEPHRECTOMY FOR STONE @ AGE 34YRS) Denies:: HX of Hemodialysis (HX CHRONIC RENAL DISEASE) Female Hx: Denies:: Currently Skin History: Denies:: History Skin Disorders? Pressure Ulcers Hx Musculoskeletal Problems?: Yes Musculoskeletal History: Positive for:: Back Injury (back pain) Musculoskeletal Trauma (S/P RT FOOT RPR) Denies:: Joint Replacement Hx of Psycho/Social Problems?: Yes Psycho Social History: Positive for:: Hx Depression Denies:: Anxiety Hx Surgeries?: Yes (LT PARTIAL NEPHRECTOMY,LYSIS OF ADHESIONS,RT FOOT RPR,HYST, CATARACTS) Hx Any Other Health Problems?: Yes Other History: Positive for:: Hospitalization (FLANK PAIN) Thyroid Disease (HX OF) Denies:: Cancer Endocrine Disease History Blood Transfusions: Positive for:: Blood Transfuse Reaction Denies:: Blood Transfusions Hx Diabetes: No Hx Alcohol Use: NoHx Substance Use: No Smoking Status: Never Smoker Have You Smoked inLast 12 mo: No Stop/Bang S-Snoring: Do You Snore Loudly: No T-Tired: feel tired, fatigued: Yes O-Obsered: Observed not breath: No P-Blood Pressure: treated: Yes B- Body Mass Index > 35 kg/m2: No A- Age over 50: Yes N- Neck Large Circumference: No G- Gender Male: No LEXI Total Score: 3 Risk Assessment Category Category 1A: Patient has history of documented sleep apnea, and HAS NOT received any narcotic, sedative or anesthesia administration during this stay. Category 1B: Patient has history of documented sleep apnea, and HAS received any narcotic , sedative or anesthesia administration during this stay Category 2: Patient has SUSPECTED Obstructive Sleep Apnea, and HAS received any narcotic , sedative or anesthesia administration during this stay. Category 3: Patient has SUSPECTED Obstructive Sleep Apnea and HAS NOT received narcotic, sedative or anesthesia administration during this stay. Category 4: Outpatient in Procedural Areas with known sleep apnea or who screen positive for High Risk via the STOP/BANG questionnaire. Exam Exam Vital Signs Vital Signs Date Time Temp Pulse Resp B/P Pulse Ox O2 Delivery O2 Flow Rate FiO2 06/05/16 12:40 36.9 62 16 169/92 94 Room Air General Appearance: Alert, Oriented X3, Cooperative, No Acute Distress HEENT/AIRWAY: MP 2 Lungs: Clear to Auscultation, Normal Air Movement Heart: Exam Unremarkable, Regular Rate/Rhythm, No Murmurs/Rubs/Gallops Plan Impression Patient chart reviewed, patient interviewed and anesthestic plan with risks, benefits, and alternatives discussed, and informed consent obtained. ASA Physical Status: ASA3 Severe Disease Anesthetic Plan: GA Bene/Risks/Altern/Consents: Yes HP Complete Prior to Induction: Yes Herbert Vela MD Jun 05, 2016 13:39
[2016-06-05] MEDS ORDERED: Lactated Ringer's 1,000 ML IV ONE (14:17)
[2016-06-05] MEDS ORDERED: Lactated Ringer's 1,000 ML IV SCH (14:43)
[2016-06-05] MEDS ORDERED: Lactated Ringer's 500 ML IV PRN (14:43)
[2016-06-05] MEDS ORDERED: Atropine 0.4 mg/mL Inj IVPUSH PRN (14:45)
[2016-06-05] MEDS ORDERED: fentaNYL-PF 50 mCg/mL 2 mL Inj IVPUSH PRN (14:45)
[2016-06-05] MEDS ORDERED: Phenylephrine 10,000 mCg/mL Inj IVPUSH PRN (14:45)
[2016-06-05] MEDS ORDERED: MetoCLOpramide 5 mg/mL 2 mL Inj IVPUSH PRN (14:45)
[2016-06-05] MEDS ORDERED: Ondansetron 2 mg/mL 2 mL Inj IVPUSH PRN (14:45)
[2016-06-05] MEDS ORDERED: Dexamethasone 4 mg/mL Inj IVPUSH PRN (14:45)
[2016-06-05] MEDS ORDERED: EPHEDrine Sulfate 50 mg/mL Inj IVPUSH PRN (14:45)
[2016-06-05] MEDS ORDERED: Labetalol 5 mg/mL 4 mL Inj IV PRN (14:45)
[2016-06-05] MEDS ORDERED: Belladonna Alk-Opium 60 mg Rectal Suppository RECTAL ONE (14:49)
[2016-06-05] MEDS ORDERED: Ondansetron 8 mg ODT Tablet PO PRN (15:00)
[2016-06-05] MEDS ORDERED: HYDROcodone-APAP 5-325 mg Tablet PO PRN (15:00)
--- NOTE | 2016-06-05 15:03 | PCM.ANEP1 ---
Post Anesthesia Phase 1 PACU Phase 1 Assessment Vital Signs Vital Signs Date Time Temp Pulse Resp B/P Pulse Ox O2 Delivery O2 Flow Rate FiO2 06/05/16 12:40 36.9 62 16 169/92 94 Room Air Anesthetic Administered: GA Level of Alertness: Sleepy, easy to arouse [place]'s with Equal Strength: Yes Pain: No Nausea or Vomiting: No Oxygen Delivery: Nasal Cannula Lungs: Clear to Auscultation, Normal Air Movement Complications: No Patient Instructions Provided: Yes Herbert Vela MD Jun 05, 2016 15:03
--- NOTE | 2016-06-05 15:07 | DRSVH ---
PROCEDURE: X-RAY RETROGRADE UROGRAPHY INDICATIONS: STENT PLACEMENT TECHNIQUE: 8 intra-operative images acquired by the Urology service. COMPARISON: [facility], CT, CT ABD PELVIS W CON, 05/27/2016, 15:09. [facility], CT, KIDNEY/ URETER/BLADDER, 05/25/2016, 9:07. FINDINGS: The left renal collecting system is not opacified which demonstrates no hydronephrosis. T here is a small intraluminal filling defect involving the lower pole likely one of the calcifications seen on previous CT. Visualized portions of the ureters demonstrate normal course and caliber. No extravasation of contrast media. Ureteral stent was placed. IMPRESSION: Filling defect within the lower pole of the left collecting system likely one of the calcifications s een on previous CT. Ureteral stent placement Dictated by: Tam Jean-Baptiste [facility] Interpreted: Randi Mckeon MD on 06/05/2016 at 15:04 Transcribed by: KADEN on 06/05/2016 at 15:06 Approved by: Randi Mckeon M.D. on 06/05/2016 at 17:51
--- NOTE | 2016-06-05 15:18 | PCM.PROC ---
Procedure Note Date of Service: Jun 05, 2016 Pre Procedure Diagnosis: abdominal pain/back pain L>>>R CT (x2 410 and 05/27) showing NO evidence of ureteral calculus, no perinephric stranding, no periureteral changes, No hydronephosis. h/o Fibromyalgia/chronic pain Post Procedure Diagnosis: abdominal pain/back pain L>>>R CT (x2 4/10 and 4/12) showing NO evidence of ureteral calculus, no perinephric stranding, no periureteral changes, No hydronephosis. h/o Fibromyalgia/chronic pain same NO obstruction seen at retrograde pyelogram, no hydronephosis now Stented- to ensure no intermittent obstruction as from her known nephrolithiasis. Stone location in kidney does not look like typical for intermittent obstruction (these appear lower pole and not in the renal pelvis where intermittent obstruction makes sense) Procedure: L retrograde pyelogram L JJ stent placement Provider and Application Helper: Nas Indication for Procedure: abdominal pain/back pain L>>>R CT (x2 4 and 05/27) showing NO evidence of ureteral calculus, no perinephric stranding, no periureteral changes, No hydronephosis. h/o Fibromyalgia/chronic pain same NO obstruction seen at retrograde pyelogram, no hydronephosis now Stented- to ensure no intermittent obstruction as from her known nephrolithiasis. Stone location in kidney does not look like typical for intermittent obstruction (these appear lower pole and not in the renal pelvis where intermittent obstruction makes sense) Findings: as above Procedural Analgesia: gen Procedure Details: as above Post Procedure Plan: abdominal pain/back pain L>>>R CT (x2 05/25 and 05/27) showing NO evidence of ureteral calculus, no perinephric stranding, no periureteral changes, No hydronephosis. h/o Fibromyalgia/chronic pain same NO obstruction seen at retrograde pyelogram, no hydronephosis urine completely clear bladder completely non inflamed NO post obstructive debris or material or cellular material post stent placement to suggest previous obstruction. now Stented- to ensure no intermittent obstruction as from her known nephrolithiasis. Stone location in kidney does not look like typical for intermittent obstruction (these appear lower pole and not in the renal pelvis where intermittent obstruction makes sense) If pain persists- it is not by all evidence urologic in origin. Recommend cont investigations to other causes Will electively address her non-obstructing renal calculi in the future (once her acute pain issues have settled) Rubia Lovell MD Jun 05, 2016 15:18
--- NOTE | 2016-06-06 14:05 | OP ---
[address] [address] OPERATIVE REPORT PATIENT: DARRICK MCMILLAN : 1940 MR#: [id number] ADMIT: 06/05/2016 JOB ID: [id number] DATE OF SURGERY: 06/05/2016 PROCEDURES: Left-sided retrograde pyelogram, left-sided double-J stent placement. SURGEON: Rubia Lovell M.D. ANESTHESIA: General. PREOPERATIVE DIAGNOSIS(ES): 1. Left-sided flank and back pain. 2. Left-sided nonobstructing renal calculi. POSTOPERATIVE DIAGNOSIS(ES): 1. Left-sided flank and back pain. 2. Left-sided nonobstructing renal calculi. INDICATIONS: The patient is a 76-year-old woman with longstanding history of both nephrolithiasis, also fibromyalgia and some other pain issues having increasing left-sided back and flank pain. She has had two prior CAT scan showing nonobstructing stones. No evidence of hydronephrosis. No evidence of perinephric stranding, no evidence of ureteral calculus. However, concern persists for intermittent obstruction from her nonobstructing renal calculi as a potential source of her abdominal pain versus secondary cause unrelated to the genitourinary system. She is counseled about risks and benefits of treatment options and wished to proceed with retrograde pyelogram and stenting. PROCEDURE IN DETAIL: After appropriate informed consent was obtained, the patient was brought to the operating room. She received IV antibiotics prior to onset of the procedure. SCDs were placed. Adequate general anesthesia induced. She was carefully placed in dorsal lithotomy position and all pressure points carefully padded. Cleaned, prepped, and draped in the usual sterile fashion. Rigid scope was introduced into the patient's bladder. The left-sided ureteral orifice was noted. She has some cystocele making cannulization easier with some suspension through the vagina. The urine was completely clear. There was clear efflux from this left side. No evidence of inflammatory changes. An open-ended catheter was introduced into the left-sided ureter and retrograde pyelogram was performed. This was performed and no filling defects were noted. No dilation was noted. There was prompt drainage. There was no postobstructive drainage once a catheter was placed. No debris came down with the efflux of the contrast. We then introduced a wire. This was brought up into the patient's renal pelvis and over this we placed a 6-B[place] x 26 cm double J stent into good position. Again no debris. No indications of prior obstruction were seen. The patient tolerated the procedure very well. There was a good curl in the renal pelvis and a good curl in the patient's bladder. Bladder itself was drained. She was awakened and taken in stable condition to postanesthesia care unit. There was no string left on the stent.
== END 2016-06-05 23:59 | disposition home or self-care (01) ==
LOC: SAS 12:10
PROVIDERS: ATTEND Urology
DX: N20.0 Calculus of kidney (principal); R10.9 Unspecified abdominal pain; M54.5 Low back pain; I25.10 Atherosclerotic heart disease of native coronary artery without angina pectoris; I13.0 Hypertensive heart and chronic kidney disease with heart failure and stage 1 through stage 4 chronic kidney disease, or unspecified chronic kidney disease; M79.7 Fibromyalgia; K21.9 Gastro-esophageal reflux disease without esophagitis; N18.9 Chronic kidney disease, unspecified; F32.9 Major depressive disorder, single episode, unspecified; I47.1 Supraventricular tachycardia; I71.4 Abdominal aortic aneurysm, without rupture; J45.909 Unspecified asthma, uncomplicated; Z90.710 Acquired absence of both cervix and uterus
CPT/HCPCS: 52332; 74420; C2617; J0690; J1100; J2405; J3010; J7120; Q9967